=== PATIENT | female | born 1985 | race Hispanic/Latino ===

== ENCOUNTER 2017-08-28 11:41 | Outpatient (CLI) | payer OTHER | END 2017-08-28 11:42 | disposition home or self-care (01) | LOC: BICRAD 11:41 | DX: S99.921A Unspecified injury of right foot, initial encounter (principal); S92.352A Displaced fracture of fifth metatarsal bone, left foot, initial encounter for closed fracture ==

== ENCOUNTER 2017-11-24 00:19 | Emergency (ER) | payer BC, OTHER, SELFPAY ==
[2017-11-24 01:03] LABS: #Basophils 0.1 thou/uL (0.0-0.2); #Eosinphils 0.4 thou/uL (0.0-0.7); #Lymphocytes 3.8 thou/uL (1.20-3.40); #Monocytes 0.6 thou/uL (0.11-0.59); #Neutrophils 6.6 thou/uL (1.40-6.50); %Basophils 0.7 % (0.0-1.0); %Eosinophils 3.7 % (0.0-10.0); %Lymphocytes 33.1 % (21.0-51.0); %Monocytes 5.1 % (0.0-10.0); %Neutrophils 57.3 % (42.0-75.0); Hemoglobin 12.3 g/dL (12.0-16.0); Mean Corpuscular HGB CONC 33.1 g/dL (32.0-36.0); Mean Corpuscular Hemoglobin 26.4 pg (27.0-31.0); Mean Corpuscular Volume 79.7 fL (78.0-98.0); Mean Platelet Volume 7.4 fL (7.4-10.4); Platelet Count 394 thou/uL (130-400); RBC Distribution Width 13.6 % (11.5-14.5); Red Blood Cell (RBC) Count 4.66 mill/uL (4.20-5.40); White Blood Cell (WBC) Count 11.6 thou/uL (4.8-10.8)
[2017-11-24 01:22] LABS: ALT (SGPT) 9 U/L (8-55); AST (SGOT) 10 U/L (5-34); Albumin 3.7 g/dL (3.5-5.0); Alkaline Phosphatase 77 U/L (40-150); Anion Gap 13 mmol/L (10-20); BUN (Urea Nitrogen) 12 mg/dL (7.0-18.7); Bilirubin, Total 0.2 mg/dL (0.2-1.2); Calc. Creatinine Clearance 0 mL/min (70-130); Calcium 9.2 mg/dL (7.8-10.44); Carbon Dioxide 23 mmol/L (22-29); Chloride 107 mmol/L (98-107); Estimated GFR-MDRD 82; Globulin 3.3 g/dL (2.4-3.5); Glucose 144 mg/dL (70-105); Potassium 3.6 mmol/L (3.5-5.1); Sodium 139 mmol/L (136-145)
[2017-11-24 01:26] LABS: CKMB 0.6 ng/mL (0-6.6); Troponin I Less than 0.010 ng/mL (< 0.028)
--- NOTE | 2017-11-24 09:04 | RAD ---
PORTABLE CHEST: Date: 11/24/17 PROVIDED CLINICAL HISTORY: Chest pain. FINDINGS: Comparison with 11/24/11. Cardiac and mediastinal silhouette is within normal limits. Lungs appear clear. No pleural fluid or p neumothorax apparent. IMPRESSION: No evidence for an acute cardiopulmonary process. POS: [id number]
== END 2017-11-24 01:47 | disposition home or self-care (01) ==
LOC: ERS 00:19
DX: M25.512 Pain in left shoulder (principal); F41.9 Anxiety disorder, unspecified; I10 Essential (primary) hypertension; Z79.899 Other long term (current) drug therapy
CPT/HCPCS: 36415; 71045; 80053; 82553; 84484; 85025; 93005

== ENCOUNTER 2022-05-13 14:47 | Inpatient (IN) | payer BC ==
[2022-05-13 15:21] LABS: #Eosinphils 0.3 thou/uL (0.0-0.7); #Lymphocytes 3.3 thou/uL (1.20-3.40); #Monocytes 0.6 thou/uL (0.11-0.59); #Neutrophils 7.1 thou/uL (1.40-6.50); %Basophils 0.3 % (0.0-1.0); %Eosinophils 2.8 % (0.0-10.0); %Lymphocytes 28.9 % (21.0-51.0); %Monocytes 5.3 % (0.0-10.0); %Neutrophils 62.7 % (42.0-75.0); Hemoglobin 6.3 g/dL (12.0-16.0); Mean Corpuscular HGB CONC 31.7 g/dL (32.0-36.0); Mean Corpuscular Hemoglobin 24.4 pg (27.0-31.0); Mean Corpuscular Volume 76.9 fl (78.0-98.0); Mean Platelet Volume 7.4 fL (7.4-10.4); Platelet Count 605 10x3/uL (130-400); RBC Distribution Width 17.2 % (11.5-14.5); Red Blood Cell (RBC) Count 2.57 mill/uL (4.20-5.40); White Blood Cell (WBC) Count 11.3 10x3/uL (4.8-10.8)
[2022-05-13 15:29] LABS: BHCG - Serum Negative (NEGATIVE); Pregs Control Background? CLEAR/WHITE (CLR/WHITE); Pregs Control Bar Appear? YES (CONTROL BAR)
[2022-05-13 15:41] LABS: ALT (SGPT) Less than 7 U/L (8-55); AST (SGOT) 12 U/L (5-34); Albumin 3.5 g/dL (3.5-5.0); Alkaline Phosphatase 69 U/L (40-110); Anion Gap 13 mmol/L (10-20); BUN (Urea Nitrogen) 13 mg/dL (7.0-18.7); Bilirubin, Total 0.2 mg/dL (0.2-1.2); Calc. Creatinine Clearance 0 mL/min (70-130); Calcium 8.2 mg/dL (7.8-10.44); Carbon Dioxide 22 mmol/L (22-29); Chloride 108 mmol/L (98-107); Estimated GFR 95; Globulin 2.9 g/dL (2.4-3.5); Glucose 152 mg/dL (70-105); Potassium 3.7 mmol/L (3.5-5.1); Protein, Total 6.4 g/dL (6.0-8.3); Sodium 139 mmol/L (136-145)
[2022-05-13] MEDS ORDERED: Dextrose 50% Abboject 50 ML SYRINGE SLOW IVP PRN (17:38)
[2022-05-13] MEDS ORDERED: Insulin Regular 300 UNITS/3 ML VIAL SC PRN ×2 (17:38)
[2022-05-13] MEDS ORDERED: Acetaminophen 325 MG TAB PO PRN (17:38)
[2022-05-13] MEDS ORDERED: Ondansetron ODT 4 MG TAB PO PRN (17:38)
[2022-05-13] MEDS ORDERED: Ondansetron PF 4 MG/2 ML Vial IVP PRN (17:38)
[2022-05-13] MEDS ORDERED: Dextrose 5% in Water 1,000 ML IV PRN (17:38)
[2022-05-13] MEDS ORDERED: diphenhydrAMINE 50 MG/ML VIAL ONE (17:40)
[2022-05-13] MEDS ORDERED: Ondansetron PF 4 MG/2 ML Vial ONE (17:40)
[2022-05-13] MEDS ORDERED: medroxyPROGESTERone Acetate 5 MG TAB PO SCH (21:00)
[2022-05-13 21:27] VITALS: BMI 48.2
[2022-05-13] MEDS: Sodium Chloride 0.9% 1,000 ML IV SCH (22:00)
[2022-05-13 22:38] LABS: Hemoglobin 7.9 g/dL (12.0-16.0)
[2022-05-14 05:22] LABS: Anion Gap 9 mmol/L (10-20); BUN (Urea Nitrogen) 11 mg/dL (7.0-18.7); Calc. Creatinine Clearance 191 mL/min (70-130); Calcium 7.9 mg/dL (7.8-10.44); Carbon Dioxide 25 mmol/L (22-29); Chloride 108 mmol/L (98-107); Estimated GFR 113; Glucose 109 mg/dL (70-105); Potassium 3.2 mmol/L (3.5-5.1); Sodium 139 mmol/L (136-145)
[2022-05-14 05:24] LABS: #Basophils 0.1 thou/uL (0.0-0.2); #Eosinphils 0.2 thou/uL (0.0-0.7); #Lymphocytes 3.2 thou/uL (1.20-3.40); #Monocytes 0.6 thou/uL (0.11-0.59); #Neutrophils 12.8 thou/uL (1.40-6.50); %Basophils 0.3 % (0.0-1.0); %Lymphocytes 19.1 % (21.0-51.0); %Monocytes 3.4 % (0.0-10.0); %Neutrophils 76.3 % (42.0-75.0); Hemoglobin 7.2 g/dL (12.0-16.0); Mean Corpuscular HGB CONC 31.9 g/dL (32.0-36.0); Mean Corpuscular Hemoglobin 25.5 pg (27.0-31.0); Mean Corpuscular Volume 79.8 fl (78.0-98.0); Mean Platelet Volume 7.6 fL (7.4-10.4); Platelet Count 497 10x3/uL (130-400); RBC Distribution Width 17.2 % (11.5-14.5); Red Blood Cell (RBC) Count 2.84 mill/uL (4.20-5.40); White Blood Cell (WBC) Count 16.8 10x3/uL (4.8-10.8)
[2022-05-14] MEDS: Sodium Chloride 0.9% 1,000 ML IV SCH ×2 (06:08→17:23)
[2022-05-14] MEDS: Fioricet 325/50/40 mg Tablet PO PRN ×2 (06:30→13:27)
[2022-05-14 09:53] LABS: Hemoglobin 7.7 g/dL (12.0-16.0); Platelet Count 521 10x3/uL (130-400)
[2022-05-14] MEDS ORDERED: Tranexamic Acid 1,000 MG in Sodium Chloride 0.9% 100 ML IVP SCH (12:15)
[2022-05-14 12:50] LABS: INR-International Normal Ratio 1.1; PTT 29.4 sec (22.9-36.1); Prothrombin Time 14.4 sec (12.0-14.7)
[2022-05-14 13:19] LABS: Hemoglobin 7.3 g/dL (12.0-16.0)
[2022-05-14 13:27] LABS: Glucose 123 mg/dL (70-105)
[2022-05-14 13:34] LABS: INR-International Normal Ratio 1.2; Prothrombin Time 15.4 sec (12.0-14.7)
[2022-05-14 16:55] LABS: Hemoglobin 7.2 g/dL (12.0-16.0); Platelet Count 490 10x3/uL (130-400)
[2022-05-14 17:25] VITALS: BP 118/74; TEMP 97.7
[2022-05-14] MEDS ORDERED: medroxyPROGESTERone Acetate 5 MG TAB PO SCH (21:00)
== END 2022-05-14 19:15 | disposition short-term general hospital (02) | DRG 812 ==
LOC: ERS 14:47 → 2NO 19:09 → OBSVTOIN 05-14 12:10
PROVIDERS: ADMIT Family Medicine; ATTEND Family Medicine
PROC: 30233N1 Transfusion of Nonautologous Red Blood Cells into Peripheral Vein, Percutaneous Approach (ICD-10-PCS; principal; 2022-05-13)
DX: D62 Acute posthemorrhagic anemia (principal); D25.9 Leiomyoma of uterus, unspecified; Z20.822 Contact with and (suspected) exposure to COVID-19; I10 Essential (primary) hypertension; E11.9 Type 2 diabetes mellitus without complications; F12.10 Cannabis abuse, uncomplicated; N93.8 Other specified abnormal uterine and vaginal bleeding; Z79.899 Other long term (current) drug therapy; Z79.84 Long term (current) use of oral hypoglycemic drugs
CPT/HCPCS: 36415; 36416; 36430; 80048; 80053; 84703; 85025; 85610; 85730; 86850; 86900; 86901; 93005; 96374; 96375; J1200; J2405; J3490; J7050; P9016; U0003; U0005